=== PATIENT | male | born 1955 | race Caucasian/White ===

== ENCOUNTER 2017-03-25 16:22 | Emergency (ER) | payer BC ==
--- NOTE | 2017-03-25 16:23 | UC ---
Cardiac HPI - HPI Summary HPI Summary: 61 YEAR OLD MALE PRESENTS WITH COMPLAINS OF LEFT SIDED CHEST PAIN AND SHORTNESS OF BREATH. I WILL SEND HIM TO THE ER TO RULE OUT MO. DR PRABHAKAR FROM CARDS NOTIFIED. - History of Current Complaint Stated Complaint: CHEST PAIN, AND SHORTNESS OF BREATH Time Seen by Provider: 03/25/17 16:23 Hx Obtained From: Patient Onset/Duration: Sudden Onset Initial Severity: Severe Current Severity: Severe Chest Pain Location: Left Anterior Character: Fast Aggravating Factor(s): Exertion Alleviating Factor(s): Rest PMH/Surg Hx/FS Hx/Imm Hx Previously Healthy: Yes Review of Systems Constitutional: Negative Skin: Negative Eyes: Negative ENT: Negative Respiratory: Negative Cardiovascular: Palpitations, Chest Pain Gastrointestinal: Negative Genitourinary: Negative Motor: Negative Neurovascular: Negative Musculoskeletal: Negative Neurological: Negative Psychological: Negative All Other Systems Reviewed And Are Negative: Yes Physical Exam Triage Information Reviewed: Yes Eye Exam: Normal ENT Exam: Normal Dental Exam: Normal Neck exam: Normal Neck: Positive: 1 Respiratory Exam: Normal Cardiovascular: Positive: Tachycardia Abdominal Exam: Normal Musculoskeletal Exam: Normal Neurological Exam: Normal Psychological Exam: Normal Skin Exam: Normal - Clinical Impression Provider Diagnoses: LEFT SIDED CHEST PAIN Discharge - Discharge Plan Condition: Stable Disposition: HOME Referrals: No Primary Care Phys,NOPCP [Primary Care Provider] -
[2017-03-25] MEDS ORDERED: Aspirin EC Low Dose* 81 MG TAB.EC PO ONE (16:34)
[2017-03-25] MEDS ORDERED: Aspirin Low Dose CHEW TAB* 81 MG ONE (16:37)
[2017-03-25] MEDS ORDERED: Aspirin Low Dose CHEW TAB* 81 MG PO ONE (16:38)
[2017-03-25 17:03] VITALS: BP 155/74
== END 2017-03-25 16:55 | disposition short-term general hospital (02) ==
LOC: UCEAST 16:22
DX: R07.9 Chest pain, unspecified (principal)
CPT/HCPCS: 93005; 99203; A9270-GY; G0463

== ENCOUNTER 2017-03-25 17:07 | Observation (INO) | payer BC ==
[2017-03-25] MEDS ORDERED: Morphine INJ* 4 MG/ML 1 ML CARPUJECT IV ONE (17:32)
[2017-03-25] MEDS ORDERED: Aspirin Low Dose CHEW TAB* 81 MG PO ONE (17:32)
--- NOTE | 2017-03-25 17:54 | RAD ---
INDICATION: Chest pain. COMPARISON: There are no prior studies available for comparison. TECHNIQUE: A portable view of the chest was obtained. FINDINGS: Cardiac and mediastinal contours appear to be within normal limits. The lungs are underinflated and clear. No pleural effusion is seen. IMPRESSION: NO EVIDENCE FOR ACUTE DISEASE.
[2017-03-25] MEDS ORDERED: Ondansetron INJ* 2 MG/ML VIAL IV ONE (17:59)
[2017-03-25] MEDS ORDERED: Ondansetron INJ* 2 MG/ML VIAL ONE (17:59)
[2017-03-25 18:00] LABS: Hematocrit 43 % (42-52); Hemoglobin 14.7 g/dl (14.0-18.0); Mean Corpuscular HGB Conc 34 g/dl (31-36); Mean Corpuscular Hemoglobin 28 pg (27-31); Mean Corpuscular Volume 81 fL (80-94); Mean Platelet Volume 8 um3 (7.4-10.4); Red Cell Distribution Width 14 % (10.5-15); White Blood Count 7.9 10^3/ul (3.5-10.8)
[2017-03-25 18:16] LABS: BUN/Creatinine Ratio 18.4 (8-20); Calcium 8.9 mg/dL (8.6-10.3); EGFR Non-African American 77.8 (>60); Globulin 2.9 g/dL (2-4); Magnesium 1.8 mg/dL (1.9-2.7); Potassium 3.8 mmol/L (3.5-5.0); Total Bilirubin 0.5 mg/dL (0.2-1.0); Total Protein 6.9 g/dL (6.4-8.9)
[2017-03-25 18:33] LABS: Urine Bilirubin Negative (Negative); Urine Glucose 3+(>=500 mg/dL) (Negative); Urine Nitrite Negative (Negative)
[2017-03-25] MEDS ORDERED: Insulin REGULAR(*) 1 UNITS UNIT IV PUSH ONE (18:41)
[2017-03-25] MEDS ORDERED: Magnesium Oxide TAB* 400 MG PO ONE (18:44)
[2017-03-25] MEDS: NS 0.9% 1000 ML* 2,000 ML IV ONE ×2 (18:48→18:49)
[2017-03-25 18:52] LABS: TSH (Thyroid Stimulating Horm) 2.52 mcIU/mL (0.34-5.60)
[2017-03-25] MEDS ORDERED: Dextrose 50% Syringe 50 ML* 25 GM/50 ML SYRINGE IV PUSH PRN (19:55)
[2017-03-25] MEDS ORDERED: Enoxaparin(*) 40 MG/0.4 ML SYR SUBCUT SCH (20:00)
[2017-03-25] MEDS: Insulin LISPRO* 1 UNITS UNIT SUBCUT SCH (21:44)
--- NOTE | 2017-03-25 23:53 | HP ---
CC: [facility]* ADMISSION HISTORY AND PHYSICAL: DATE OF ADMISSION: 03/25/17 PRIMARY CARE PROVIDER: [facility]. ADMITTING PROVIDER: STONEY Krause SUPERVISING PHYSICIAN: Dr. Darius Mnosalve* (dictated by STONEY Krause). CHIEF COMPLAINT: Chest pain. HISTORY OF PRESENT ILLNESS: This is a 61-year-old gentleman with non-insulin- dependent diabetes, hypertension, hyperlipidemia, anxiety and a history of prostate cancer, who presented to urgent care and then subsequently transferred to the emergency department with complaints of chest pain. The patient is a [employer] employee and was lives in [place], but was working outside of [place]. 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 He states that he was incredibly uncomfortable and at one point he became severely short of breath and began to feel nauseous and diaphoretic and dizzy. He left the garage and sat down in a cooler environment and then began to have chest pain. He presented to the urgent care with these symptoms and felt slightly better when oxygen was applied. In the emergency department, he received aspirin, morphine, and Zofran. Unsure if he received nitro en route. At the time of evaluation, he states that his chest pain has nearly resolved. The patient reports that he recently had a stress test completed in anticipation of an upcoming minor surgery, but was asymptomatic and his stress test was abnormal and he proceeded to cardiac catheterization. His cardiac catheterization demonstrated 100% stenosis of one of his vessels, but he had some evidence of revascularization, so for that reason stenting was not attempted. Because he was asymptomatic, the patient was not started on any nitrates or other new medications. PAST MEDICAL HISTORY: 1. Kls-uwcfcjo-suskcqxda diabetes - the patient does not check glucose at home , but believes that his hemoglobin A1c has been within normal limits. 2. Hypertension. 3. Hyperlipidemia. 4. Anxiety. 5. History of prostate cancer. PAST SURGICAL HISTORY: Prostatectomy. MEDICATIONS: 1. Aspirin 81 mg p.o. daily. 2. Crestor 40 mg p.o. at bedtime. 3. Lexapro 20 mg p.o. daily. 4. Vitamin D 2000 units p.o. at bedtime. 5. Metformin 1000 mg p.o. twice daily. 6. Januvia 100 mg p.o. daily. 7. Glipizide 10 mg p.o. twice daily. 8. Irbesartan 300 mg p.o. daily. 9. Bupropion 300 mg p.o. daily. 10. Omeprazole 20 mg p.o. daily. 11. Lexapro 20 mg p.o. daily. 12. Wellbutrin of unknown dose. SOCIAL HISTORY: The patient is an employee of [employer]. He has a 40-pack year smoking history, but quit about 5 years ago. He denies any regular alcohol consumption and lives at home with his . REVIEW OF SYSTEMS: As noted above in HPI, all other systems reviewed and otherwise negative. PHYSICAL EXAMINATION GENERAL: This is a pleasant middle-aged gentleman, accompanied by his , in no acute distress. VITAL SIGNS: Initial vitals, temperature 97.4 degrees Fahrenheit, pulse is 93 beats per minute, respiratory rate 20 per minute, oxygen saturation 99% on room air, blood pressure 136/69 mmHg. HEENT: Head is normocephalic and atraumatic. Mucous membranes are pink and moist. RESPIRATORY: Lungs are clear to auscultation without wheezes, crackles, or rhonchi. CARDIOVASCULAR: He has a regular rate and rhythm, but he does have a murmur estimated about 3/6. No rubs or gallops. ABDOMEN: Abdomen is soft and nontender to palpation. EXTREMITIES: No edema noted. PSYCH: The patient is alert, appropriately oriented and affect is appropriate to the situation. DIAGNOSTIC STUDIES/LAB DATA: CBC is unremarkable with a white blood cell count of 7900, hemoglobin of 14.7 g/dL, and a platelet count of 251,000. Comprehensive metabolic panel shows a sodium of 132 mmol/L, potassium of 3.8, serum bicarb of 20, BUN 18, creatinine 0.98. Glucose 409 mg/dL. Magnesium 1.8. Transaminases and total bilirubin within normal limits. Initial troponin negative at 0.00. TSH normal at 2.5. Urinalysis demonstrates 3+ glucose, otherwise normal. IMAGING: EKG shows a normal sinus rhythm without ischemic changes. Chest x-ray shows no acute process. ASSESSMENT AND PLAN: This is a 61-year-old gentleman with non-insulin- dependent diabetes, hypertension, hyperlipidemia, anxiety and history of prostate cancer, who presents with complaints of chest pain and noted hyperglycemia. 1. Chest pain - the patient does have known coronary artery disease with 100% stenosis of an unspecified vessel with neovascularization noted on recent cardiac catheterization per the patient and his 's report. This cardiac catheterization was completed at [facility] and we will work to obtain records. Because of his recent cardiac catheterization without evidence of acute coronary syndrome, at this time we will not plan to repeat a stress test, but we will maintain continuous telemetry monitoring and serial troponins. We will plan to continue home medications, which include appropriate medical management. I suspect that his chest pain may have had a mild ischemic components based on his known history of collateral circulation supporting a portion of his heart. While working in the heat, he may have become acutely dehydrated leading to poor perfusion. No evidence of acute coronary syndrome at this time. 2. Hyperglycemia - the patient has known qxk-zqipxup-wxcrjsmnv diabetes. He states that he does not check his glucose at home, but his hemoglobin A1c has recently been normal. A hemoglobin A1c has been ordered for him. He did respond positively in the emergency department to a bolus of regular insulin. We will continue to monitor his glucose during his hospital stay and cover additional hyperglycemia with insulin as needed. The patient does have slightly depressed serum bicarb, but this does not appear to be presentation of diabetic ketoacidosis. He has already received 2 L of fluid in the emergency department along with a bolus of insulin as described above. We will plan to repeat chemistries in the morning. 3. Hypertension - the patient is mildly hypertensive. We will plan to continue his home antihypertensives at this time. 4. Hyperlipidemia. Plan to continue statin. 5. Anxiety. 6. History of prostate cancer. 7. Code status. The patient is full code. 8. DVT prophylaxis. He will be started on subcutaneous Lovenox. 9. Healthcare proxy is his . DISPOSITION: The patient is being admitted to observation status with complaints of chest pain. Anticipated length of stay to be less than 1 midnight. STONEY KRAUSE [id number]/[facility] #: [id number] ROXY
[2017-03-26 06:58] LABS: BUN/Creatinine Ratio 22.4 (8-20); Calcium 8.4 mg/dL (8.6-10.3); EGFR African American 183.2 (>60); EGFR Non-African American 142.4 (>60); Potassium 3.5 mmol/L (3.5-5.0)
[2017-03-26] MEDS: Insulin LISPRO* 1 UNITS UNIT SUBCUT SCH ×2 (09:18→13:00)
[2017-03-26 11:41] VITALS: BP 140/67
--- NOTE | 2017-03-26 18:59 | ED ---
Gagan Meyer Thomas, scribed for Ollie Briscoe MD on 03/25/17 at 1730 . HPI Chest Pain - HPI Summary HPI Summary: The patient is a 61 y/o M [place] [facility] [place] complaints of lower CP that began today at 15:45 when he was changing his alternator in his garage. This CP is described as constant. The CP was initially rated 7/10 but it is now 4/10. He was given four baby aspirins [place] [facility] [place]. He denies being given NTG [employer]. He complains of SOB as well with onset the same time as his CP. After this, he developed dizziness and then nausea. He is diaphoretic and he complains of near-syncope. He also has back pain, although he attributes this to bending over while fixing his motor. The patient has a headache. He has a PMHx of small heart attacks so small that I wouldnt have noticed them. He has had prior stress tests done. He also has HTN and a heart murmur. He is a former smoker. He denies alcohol use and illicit drug use. He denies FHx of MO. - History of Current Complaint Chief Complaint: EDChestPainROMI Hx Obtained From: Patient Onset/Duration: Started Hours Ago - onset today at 15:45, Still Present Time of Onset: 15:45 Timing: Constant Current Severity: Moderate Pain Intensity: 4 Pain Scale Used: 0-10 Numeric Chest Pain Location: Discrete at: - Lower chest Aggravating Factor(s): Nothing Alleviating Factor(s): Nothing Associated Signs and Symptoms: Positive: Chest Pain, Headaches, Dizziness, Shortness of Breath, Diaphoresis, Nausea, Back Pain, Other: - Near-syncope - Allergy/Home Medications Allergies/Adverse Reactions: Allergies Allergy/AdvReac Type Severity Reaction Status Date / Time No Known Allergies Allergy Verified 03/25/17 16:47 Home Medications: Home Medications Aspirin [Aspirin 81 MG TAB] 81 mg PO DAILY 03/25/17 [History Confirmed 03/25/17] BuPROPion XL* [Bupropion XL*] 300 mg PO DAILY 03/25/17 [History Confirmed ] Cholecalciferol [Vitamin D3] 2,000 unit PO BEDTIME 03/25/17 [History Confirmed 03/25/17] Escitalopram (NF) [Lexapro 20 mg (NF)] 20 mg PO DAILY 03/25/17 [History Confirmed 03/25/17] Escitalopram Oxalate [Lexapro 20 mg] 20 mg PO DAILY 03/25/17 [History Confirmed 03/25/17] Glipizide [Glucotrol] 10 mg PO BID 03/25/17 [History Confirmed 03/25/17] Irbesartan (NF) [Avapro (NF)] 300 mg PO DAILY 03/25/17 [History Confirmed ] Omeprazole CAP* [Prilosec CAP* 20 MG] 20 mg PO DAILY 03/25/17 [History Confirmed 03/25/17] Sitagliptin Phosphate [Januvia] 100 mg PO DAILY 03/25/17 [History Confirmed ] Wellbutrin TAB* 03/25/17 [History] metFORMIN* [Glucophage 1000 MG TAB *] 1,000 mg PO BID 03/25/17 [History Confirmed 03/25/17] PMH/Surg Hx/FS Hx/Imm Hx Previously Healthy: No Endocrine/Hematology History: Denies: Hx Diabetes Cardiovascular History: Reports: Hx Hypertension, Other Cardiovascular Problems/ Disorders - Hx Heart murmur - Surgical History Surgery Procedure, Year, and Place: Prostate removal, Ankle surgery Infectious Disease History: No Infectious Disease History: Denies: Traveled Outside the [place] in Last 30 Days - Family History Known Family History: Negative: Other - Negative for MO - Social History Alcohol Use: None Hx Substance Use: No Substance Use Type: Reports: None Hx Tobacco Use: Yes Smoking Status (MU): Former Smoker Review of Systems Positive: Skin Diaphoresis. Negative: Fever Positive: Chest Pain - onset today at 15:45 Positive: Shortness Of Breath Positive: Nausea Positive: Other - Back pain Neurological: Other - Dizziness, near-syncope Positive: Headache All Other Systems Reviewed And Are Negative: Yes Physical Exam - Summary Physical Exam Summary: VITAL SIGNS: Reviewed. GENERAL: Patient is a well-developed and nourished male who is lying comfortable in the stretcher. Patient is not in any acute respiratory distress. HEAD AND FACE: No signs of trauma. No ecchymosis, hematomas or skull depressions. No sinus tenderness. EYES: PERRLA, EOMI x 2, No injected conjunctiva, no nystagmus. EARS: Hearing grossly intact. Ear canals and tympanic membranes are within normal limits. MOUTH: Oropharynx within normal limits. NECK: Supple, trachea is midline, no adenopathy, no JVD, no carotid bruit, no c- spine tenderness, neck with full ROM. CHEST: Symmetric, no tenderness at palpation LUNGS: Clear to auscultation bilaterally. No wheezing or crackles. CVS: Regular rate and rhythm, S1 and S2 present, no murmurs or gallops appreciated. ABDOMEN: Soft, non-tender. No signs of distention. No rebound no guarding, and no masses palpated. Bowel sounds are normal. EXTREMITIES: FROM in all major joints, no edema, no cyanosis or clubbing. NEURO: Alert and oriented x 3. No acute neurological deficits. Speech is normal and follows commands. SKIN: Dry and warm Triage Information Reviewed: Yes Vital Signs On Initial Exam: Initial Vitals Temp Pulse Resp BP Pulse Ox 97.4 F 93 20 136/69 99 03/25/17 17:11 03/25/17 17:11 03/25/17 17:11 03/25/17 17:11 03/25/17 17:11 Vital Signs Reviewed: Yes - [place] Coma Scale Coma Scale Total: 15 Diagnostics - Vital Signs Vital Signs Temp Pulse Resp BP Pulse Ox 03/25/17 17:14 92 19 98 03/25/17 17:12 144/61 03/25/17 17:11 97.4 F 93 20 136/69 99 - Laboratory Lab Results: Lab Results 03/25/17 03/25/17 03/25/17 Range/Units 16:35 16:35 17:46 WBC (3.5-10.8) 10^3/ul RBC (4.0-5.4) 10^6/ul Hgb (14.0-18.0) g/dl Hct (42-52) % MCV (80-94) fL MCH (27-31) pg MCHC (31-36) g/dl RDW (10.5-15) % Plt Count (150-450) 10^3/ul MPV (7.4-10.4) um3 Neut % (Auto) (38-83) % Lymph % (Auto) (25-47) % [place] % (Auto) (1-9) % Eos % (Auto) (0-6) % Baso % (Auto) (0-2) % Absolute Neuts (auto) (1.5-7.7) 10^3/ul Absolute Lymphs (auto) (1.0-4.8) 10^3/ul Absolute Monos (auto) (0-0.8) 10^3/ul Absolute Eos (auto) (0-0.6) 10^3/ul Absolute Basos (auto) (0-0.2) 10^3/ul Absolute Nucleated RBC 10^3/ul Nucleated RBC % APTT 28.4 (26.0-36.3) seconds Sodium (133-145) mmol/L Potassium (3.5-5.0) mmol/L Chloride (101-111) mmol/L Carbon Dioxide (22-32) mmol/L Anion Gap (2-11) mmol/L BUN (6-24) mg/dL Creatinine (0.67-1.17) mg/dL Est GFR ( Amer) (>60) Est GFR (Non-Af Amer) (>60) BUN/Creatinine Ratio (8-20) Glucose (70-100) mg/dL POC Glucose (mg/dL) (70-100) mg/dL Calcium (8.6-10.3) mg/dL Magnesium (1.9-2.7) mg/dL Total Bilirubin (0.2-1.0) mg/dL AST (13-39) U/L ALT (7-52) U/L Alkaline Phosphatase (34-104) U/L Total Creatine Kinase 73 (10-223) U/L CK-MB (CK-2) (0.6-6.3) ng/mL Troponin I (<0.04) ng/mL B-Natriuretic Peptide 33 ( - 100) pg/mL Total Protein (6.4-8.9) g/dL Albumin (3.2-5.2) g/dL Globulin (2-4) g/dL Albumin/Globulin Ratio (1-3) TSH (0.34-5.60) mcIU/mL Urine Color Urine Appearance Urine pH (5-9) Ur Specific Cando (1.010-1.030) Urine Protein (Negative) Urine Ketones (Negative) Urine Blood (Negative) Urine Nitrate (Negative) Urine Bilirubin (Negative) Urine Urobilinogen (Negative) Ur Leukocyte Esterase (Negative) Urine Glucose (Negative) 03/25/17 03/25/17 03/25/17 Range/Units 17:46 17:46 18:12 WBC 7.9 (3.5-10.8) 10^3/ul RBC 5.30 (4.0-5.4) 10^6/ul Hgb 14.7 (14.0-18.0) g/dl Hct 43 (42-52) % MCV 81 (80-94) fL MCH 28 (27-31) pg MCHC 34 (31-36) g/dl RDW 14 (10.5-15) % Plt Count 251 (150-450) 10^3/ul MPV 8 (7.4-10.4) um3 Neut % (Auto) 82.6 (38-83) % Lymph % (Auto) 10.5 L (25-47) % [place] % (Auto) 6.4 (1-9) % Eos % (Auto) 0.3 (0-6) % Baso % (Auto) 0.2 (0-2) % Absolute Neuts (auto) 6.5 (1.5-7.7) 10^3/ul Absolute Lymphs (auto) 0.8 L (1.0-4.8) 10^3/ul Absolute Monos (auto) 0.5 (0-0.8) 10^3/ul Absolute Eos (auto) 0 (0-0.6) 10^3/ul Absolute Basos (auto) 0 (0-0.2) 10^3/ul Absolute Nucleated RBC 0.02 10^3/ul Nucleated RBC % 0.2 APTT (26.0-36.3) seconds Sodium 132 L (133-145) mmol/L Potassium 3.8 (3.5-5.0) mmol/L Chloride 101 (101-111) mmol/L Carbon Dioxide 20 L (22-32) mmol/L Anion Gap 11 (2-11) mmol/L BUN 18 (6-24) mg/dL Creatinine 0.98 (0.67-1.17) mg/dL Est GFR ( Amer) 100.0 (>60) Est GFR (Non-Af Amer) 77.8 (>60) BUN/Creatinine Ratio 18.4 (8-20) Glucose 409 H (70-100) mg/dL POC Glucose (mg/dL) (70-100) mg/dL Calcium 8.9 (8.6-10.3) mg/dL Magnesium 1.8 L (1.9-2.7) mg/dL Total Bilirubin 0.50 (0.2-1.0) mg/dL AST 14 (13-39) U/L ALT 25 (7-52) U/L Alkaline Phosphatase 93 (34-104) U/L Total Creatine Kinase (10-223) U/L CK-MB (CK-2) 2.2 (0.6-6.3) ng/mL Troponin I 0.00 (<0.04) ng/mL B-Natriuretic Peptide ( - 100) pg/mL Total Protein 6.9 (6.4-8.9) g/dL Albumin 4.0 (3.2-5.2) g/dL Globulin 2.9 (2-4) g/dL Albumin/Globulin Ratio 1.4 (1-3) TSH 2.52 (0.34-5.60) mcIU/mL Urine Color Yellow Urine Appearance Clear Urine pH 5.0 (5-9) Ur Specific Cando 1.031 H (1.010-1.030) Urine Protein Negative (Negative) Urine Ketones Negative (Negative) Urine Blood Negative (Negative) Urine Nitrate Negative (Negative) Urine Bilirubin Negative (Negative) Urine Urobilinogen Negative (Negative) Ur Leukocyte Esterase Negative (Negative) Urine Glucose 3+(>=500 mg/dl) H (Negative) 03/25/17 Range/Units 19:43 WBC (3.5-10.8) 10^3/ul RBC (4.0-5.4) 10^6/ul Hgb (14.0-18.0) g/dl Hct (42-52) % MCV (80-94) fL MCH (27-31) pg MCHC (31-36) g/dl RDW (10.5-15) % Plt Count (150-450) 10^3/ul MPV (7.4-10.4) um3 Neut % (Auto) (38-83) % Lymph % (Auto) (25-47) % [place] % (Auto) (1-9) % Eos % (Auto) (0-6) % Baso % (Auto) (0-2) % Absolute Neuts (auto) (1.5-7.7) 10^3/ul Absolute Lymphs (auto) (1.0-4.8) 10^3/ul Absolute Monos (auto) (0-0.8) 10^3/ul Absolute Eos (auto) (0-0.6) 10^3/ul Absolute Basos (auto) (0-0.2) 10^3/ul Absolute Nucleated RBC 10^3/ul Nucleated RBC % APTT (26.0-36.3) seconds Sodium (133-145) mmol/L Potassium (3.5-5.0) mmol/L Chloride (101-111) mmol/L Carbon Dioxide (22-32) mmol/L Anion Gap (2-11) mmol/L BUN (6-24) mg/dL Creatinine (0.67-1.17) mg/dL Est GFR ( Amer) (>60) Est GFR (Non-Af Amer) (>60) BUN/Creatinine Ratio (8-20) Glucose (70-100) mg/dL POC Glucose (mg/dL) 282 H (70-100) mg/dL Calcium (8.6-10.3) mg/dL Magnesium (1.9-2.7) mg/dL Total Bilirubin (0.2-1.0) mg/dL AST (13-39) U/L ALT (7-52) U/L Alkaline Phosphatase (34-104) U/L Total Creatine Kinase (10-223) U/L CK-MB (CK-2) (0.6-6.3) ng/mL Troponin I (<0.04) ng/mL B-Natriuretic Peptide ( - 100) pg/mL Total Protein (6.4-8.9) g/dL Albumin (3.2-5.2) g/dL Globulin (2-4) g/dL Albumin/Globulin Ratio (1-3) TSH (0.34-5.60) mcIU/mL Urine Color Urine Appearance Urine pH (5-9) Ur Specific Cando (1.010-1.030) Urine Protein (Negative) Urine Ketones (Negative) Urine Blood (Negative) Urine Nitrate (Negative) Urine Bilirubin (Negative) Urine Urobilinogen (Negative) Ur Leukocyte Esterase (Negative) Urine Glucose (Negative) Result Diagrams: 03/25/17 17:46 09/28/17 06:29 Lab Statement: Any lab studies that have been ordered have been reviewed, and results considered in the medical decision making process. - EKG 16:59 Cardiac Rate: NL - 91 BPM EKG Interpretation: Sinus rhythm. Q wave in II, III, AVF. No ST elevations. Chest Pain Course/Dx - Course Assessment/Plan: The patient is a 61 y/o M [place] [facility] [place] complaints of lower CP that began today at 15:45 when he was changing his alternator in his garage. This CP is described as constant. The CP was initially rated 7/10 but it is now 4/10. He was given four baby aspirins [place] [facility] [place] pain. He denies being given NTG [employer]. He complains of SOB as well with onset the same time as his CP. After this, he developed dizziness and then nausea. He is diaphoretic and he complains of near-syncope. He also has back pain, although he attributes this to bending over while fixing his motor. The patient has a headache. He has a PMHx of small heart attacks so small that I wouldnt have noticed them. He has had prior stress tests done. He also has HTN and a heart murmur. He is a former smoker. He denies alcohol use and illicit drug use. He denies FHx of MO. Test results without any significant abnormalities except glucose 409. UA is negative for UTI. CXR shows no acute pathology. EKG has Q waves in inferior leads. There is no acute ST elevation. The patient was given ASA and the CP has subsided. The patient was given IV fluids and insulin for hyperglycemia. At this point, because of the comorbidities, I discussed the case with Dr. Barksdale, who will accept the patient for admission. The patient is hemodynamically stable and alert and oriented x3. - Chest Pain Differential Diagnosis/HQI/PQRI: Acute MO, ACS, Angina, CHF, Chest Wall, GI Disease, Lower Respiratory Infection - Diagnoses Provider Diagnoses: Chest pain rule out ACS - Provider Notifications Discussed Care Of Patient With: Kim Barksdale Time Discussed With Above Provider: 18:54 Instructed by Provider To: Other - I consulted with Dr. Barksdale, hospitalist, who admits the patient to [facility]. Discharge - Discharge Plan Condition: Fair Disposition: ADMITTED TO [facility] Discharge Disposition Comment: By Dr. Barksdale The documentation as recorded by the hunteribGagan naylor Thomas accurately reflects the service I personally performed and the decisions made by me, Ollie Briscoe MD.
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
== END 2017-03-26 15:01 | disposition home or self-care (01) ==
LOC: ED 17:07 → MEDTELE 19:53
PROVIDERS: ADMIT Hospitalist; ATTEND Internal Medicine
DX: R07.9 Chest pain, unspecified (principal); E11.9 Type 2 diabetes mellitus without complications; I10 Essential (primary) hypertension; E78.5 Hyperlipidemia, unspecified; F41.9 Anxiety disorder, unspecified; R06.02 Shortness of breath; R42 Dizziness and giddiness; R94.31 Abnormal electrocardiogram [ECG] [EKG]; Z85.46 Personal history of malignant neoplasm of prostate; Z79.84 Long term (current) use of oral hypoglycemic drugs; Z79.899 Other long term (current) drug therapy; Z79.82 Long term (current) use of aspirin; Z87.891 Personal history of nicotine dependence
CPT/HCPCS: 36415; 71010; 80048; 80053; 81003; 82550; 82553; 83735; 83880; 84443; 84484; 85025; 85730; 93005; 96361; 96372; 96374; 99285; G0378; J1650; J2270; J2405